=== PATIENT | female | born 1985 | race African-American/Black ===

== ENCOUNTER 2018-06-01 19:21 | Emergency (ER) | payer BC, OTHER ==
[~2018-06-01] VITALS: Ht 162.6 cm; Wt 68.0 kg
[2018-06-01 20:54] LABS: ABSOLUTE NEUTROPHILS 3.6 thou/uL (1.4-8.2); EOSINOPHILS 3.1 % (0.0-3.0); HEMATOCRIT 41.3 % (37.0-47.0); HEMOGLOBIN 13.6 gm/dL (12.0-15.0); LYMPHOCYTES 37.4 % (24.0-44.0); MCH 27.3 pg (26.0-34.0); MCHC 32.8 g/dL (28.0-37.0); MCV 83.2 fL (80.0-100.0); MONOCYTES 8.9 % (1.0-8.0); PLATELET COUNT 249 thou/uL (150-400); POLYS 49.6 % (36.0-66.0); RBC 4.97 mil/uL (4.20-5.00); RDW 12.4 % (10.5-14.5); WBC 7.2 thou/uL (4.0-11.0)
[2018-06-01 21:02] LABS: CALCIUM 9.2 mg/dL (8.5-10.1); CREATININE 0.9 mg/dL (0.6-1.0); POTASSIUM 3.8 mmol/L (3.5-5.1)
[2018-06-01 21:08] LABS: ALBUMIN 4.2 g/dL (3.4-5.0); TOTAL BILIRUBIN 0.4 mg/dL (<0.1-1.0); TOTAL PROTEIN 8.1 g/dL (6.4-8.2)
[2018-06-01] MEDS ORDERED: NAPROSYN500 MG PO (21:31)
[2018-06-01 21:51] VITALS: BP 109/69
--- NOTE | 2018-06-02 09:07 | EKG ---
[address] [address] [place] [address] ELECTROCARDIOGRAM REPORT Name: MACARENA GUTIERREZ Room #: DEP ANKUR Fischer#: [id number] ������������������ Admission: 06/01/18 ������������������ Attend Phys: Discharge: 06/01/18 ������������������ Date of : 85 Report #: [id number] ����������������������������������������������������������������� [id number] THIS REPORT FOR: //name// [facility] ED Test Date: 2018-06-01 Test Time: 19:35:45 Pat Name: MACARENA GUTIERREZ Department: Room: Gender: F In Room Dining Server: Daren ROACH : 1985 Requested By: Bruce Simon Order Number: [id number] MD: Jax Schafer Measurements Intervals [place] Rate: 86 P: 28 [place]: 153 QRS: 105 QRSD: 138 T: -24 QT: 371 QTc: 444 Interpretive Statements Sinus rhythm RBBB and LPFB Borderline ST elevation, lateral leads No previous ECG available for comparison Electronically Signed On 06-02-2018 9:07:20 COVER MARKER by Jax Schafer [email or web address] ��������������������������������������������� <ELECTRONICALLY SIGNED> ���������������������������������������� By: Jax Schafer MD, [facility] ��������������������������������������������� 06/02/18 [id number] Jax Schafer MD, FACC /EPI
== END 2018-06-01 21:51 | disposition home or self-care (01) ==
LOC: ER 19:21
PROVIDERS: Physician Assistant
DX: M94.0 Chondrocostal junction syndrome [Tietze] (principal); R07.89 Other chest pain; Z88.2 Allergy status to sulfonamides

== ENCOUNTER 2020-11-05 17:01 | Emergency (ER) | payer OTHER ==
[~2020-11-05] VITALS: Ht 162.6 cm; Wt 73.5 kg
[~2020-11-05 17:01] MED LIST: NAPROSYN500 MG PO
[2020-11-05 17:18] LABS: URINE BILIRUBIN NEGATIVE (Negative); URINE BLOOD NEGATIVE (Negative); URINE CLARITY CLEAR; URINE GLUCOSE-RANDOM* NEGATIVE (Negative); URINE KETONES NEGATIVE (Negative); URINE LEUKOCYTES-REFLEX NEGATIVE (Negative); URINE NITRITE-REFLEX NEGATIVE (Negative); URINE PROTEIN (DIPSTICK) NEGATIVE (Negative); URINE SPECIFIC GRAVITY <= 1.005 (1.005-1.035); URINE UROBILINOGEN 0.2 E.U./dl (0.2-1.0)
[2020-11-05 17:19] LABS: URINE COLOR STRAW
[2020-11-05 18:20] LABS: ABSOLUTE NEUTROPHILS 8.4 thou/uL (1.4-8.2); BASOPHILS 0.4 % (0.0-2.0); EOSINOPHILS 1.1 % (0.0-3.0); HEMATOCRIT 39.1 % (37.0-47.0); HEMOGLOBIN 12.7 gm/dL (12.0-15.0); LYMPHOCYTES 17.6 % (24.0-44.0); MCH 27.1 pg (26.0-34.0); MCHC 32.6 g/dL (28.0-37.0); MCV 82.9 fL (80.0-100.0); MONOCYTES 6.8 % (1.0-8.0); PLATELET COUNT 237 thou/uL (150-400); POLYS 74.1 % (36.0-66.0); RBC 4.71 mil/uL (4.20-5.00); RDW 12.9 % (10.5-14.5); WBC 11.3 thou/uL (4.0-11.0)
[2020-11-05 18:28] LABS: CALCIUM 8.8 mg/dL (8.5-10.1); CREATININE 1.1 mg/dL (0.6-1.0); POTASSIUM 3.7 mmol/L (3.5-5.1)
[2020-11-05 18:34] LABS: ALBUMIN 3.9 g/dL (3.4-5.0); TOTAL BILIRUBIN 0.3 mg/dL (0.2-1.0); TOTAL PROTEIN 7.5 g/dL (6.4-8.2)
[2020-11-05 18:38] LABS: INR 0.99; PROTIME 10.8 Seconds (10.5-12.1)
[2020-11-05 19:22] VITALS: BP 113/63
== END 2020-11-05 19:42 | disposition home or self-care (01) ==
LOC: ER 17:01
PROVIDERS: Physician Assistant
DX: R51.9 Headache, unspecified (principal); Z79.1 Long term (current) use of non-steroidal anti-inflammatories (NSAID); Z88.2 Allergy status to sulfonamides